=== PATIENT | female | born 1995 | race Two or more races ===

== ENCOUNTER 2019-10-20 12:45 | Emergency (ER) | payer OTHER ==
[2019-10-20 13:02] VITALS: BP 126/59; PULSE 75; TEMP 98.3; BMI 29.2
== END 2019-10-20 13:28 | disposition home or self-care (01) ==
LOC: JERFT 12:45 → JER 12:45 → JERFT 13:28
DX: S01.81XA Laceration without foreign body of other part of head, initial encounter (principal); Z48.02 Encounter for removal of sutures
CPT/HCPCS: 99281-25